=== PATIENT | male | born 1970 | race Caucasian/White ===

== ENCOUNTER 2020-09-12 12:41 | Day surgery (SDC) | payer OTHER, SELFPAY ==
[2020-09-12 12:58] VITALS: BMI 23.6
--- NOTE | 2020-09-12 14:21 | HO.ANESPROP2 ---
HPI - Anesthesia Eval Consult details Narrative: Screening Colonoscopy [facility] Social History Social History Smoking Status: Current every day smoker Packs Per Day: 1 Cigarettes Per Day: 20.0 Use of substances other than those prescribed or required for medical reasons: No Advance Directives: No Advance Directives Information Provided: No Meds Allergies Allergy/AdvReac Type Severity Reaction Status Date / Time No Known Allergies Allergy Verified 09/12/20 13:03 [No Known Allergies*] Exam Exam Date and Time: September 12, 2020 1421 Height,Weight and Vital Signs: Height 5 ft 6 in Weight 66.224 kg Airway Mallampati Class: II TM Dist: >3cm Neck ROM: Full Loose/Missing/Broken Teeth: No Heart: [id number] Lungs: cta b/l Assessment and Plan Assessment Anesthesia Assessment: Anesthesia Plan Discussed and Chart Reviewed Final Anesthetic Review NPO: Yes ASA Class: II and IV Final Preanesthetic Review: No Changes in Pt Med Stat, Meds/Allgs Chart Reviewed, Consent Obtained/Reviewed and Anes Risks/Benef Reviewed Patient Risk: Low Procedure Risk: Low Assessment/Block/Sedation in SS: Assess/Block/Sedation-SS Anesthetic Plan Anesthetic Plan: MAC: Disposition: Standard PACU
--- NOTE | 2020-09-12 14:42 | MHC.SHP ---
Pre-Procedural Eval Section B Chief Complaint: screening Relevant Family History (Specify if Yes): No Relevant Social History: Tobacco Use Present Medications: None Medical History: No relevant PMH History of Previous Operations: No relevant previous surgery Allergies: Allergies Allergy/AdvReac Type Severity Reaction Status Date / Time No Known Allergies Allergy Verified 09/12/20 13:03 [No Known Allergies*] Review of Systems Sugical H&P ROS: Negative: Constitution, Cardiovascular, Respiratory, Neurological, Psychiatric, Hem-Onc, Allergic/Immunologic, Gastrointestinal, Genitourinary, Musculoskeletal, Integumentary, Endocrine and Eyes/Ears/Nose/Throat Exam Surgical H&P Exam: Normal: HEENT, Normal: Heart, Normal: Lungs, Normal: Extremities, Normal: Abdomen, Normal: Skin and Normal: Neurological Plan Diagnosis/Plan: Unchanged Patient has been examined and remains a candidate for the planned procedure
--- NOTE | 2020-09-12 15:10 | P.OP_ITS ---
Operative Note Operative Note Date of Service: 09/12/20 Narrative: Operative Information Procedure Description: Colonoscopy COLONOSCOPY Instrument: Olympus variable stiffness pediatric scope 190L Colonoscopy Monitoring: Vital signs and clinical assessment, continuous EKG monitoring, Pulse oximetry, Carbon Dioxide monitoring and blood pressure monitoring were done throughout the procedure. Colon withdrawal time was 11 minutes. Procedure: The patient was placed in the left lateral decubitis position and pre-procedure medications were administered. After a digital rectal examination of the ano-rectum, the video colonoscope was inserted into the rectum and advanced through the colon to the cecum/TI. The colonoscope was slowly withdrawn in a retrograde panoramic fashion and the colon mucosa was carefully examined including a retroflexed view of the rectum. Findings and interventions are described below. Procedure Difficulty: easy Findings: Terminal Ileum-normal Cecum:normal Ascending Colon: normal Transverse Colon -normal Descending Colon:normal, 8-9 mm sessile polyp removed with cold snare Sigmoid Colon: normal apart from an isolated area of erythema and swelling over one fold, this was biopsied, noticed at about 22 cm from anal verge Rectum: Retroflexion with small to moderate internal hemorrhoids, grade I Anorectum - normal Colon preparation: [place] Bowel Preparation Scale Right colon; 1 Transverse colon: 2 Left colon; 1 (0 = Unprepared colon segment with mucosa not seen due to solid stool that cannot be cleared. 1 = Portion of mucosa of the colon segment seen, but other areas of the colon segment not well seen due to staining, residual stool and/or opaque liquid. 2 = Minor amount of residual staining, small fragments of stool and/or opaque liquid, but mucosa of colon segment seen well. 3 = Entire mucosa of colon segment seen well with no residual staining, small fragments of stool or opaque liquid) Impression and Post Procedure Diagnosis: internal hemorrhoids inflammed fold, possible related to prep polyp Plan: High fiber diet leaflet Avoid straining at stool, epsom salts and sitz bath, anusol supps or cream Repeat Colonoscopy in 1-2 years due to prep or earlier if clinically indicated. If path reveal any adenoma in inflammed fold then may need sigmoidoscopy for removal and assessment earlier Above findings were reviewed with the patient and relevant handouts were provided if indicated.
--- NOTE | 2020-09-12 15:10 | PM.OP ---
Brief Operative Note Date of Service: 09/12/20 Pre-op diagnosis: colon screen Post-op diagnosis: same Procedure: see op note Surgeon: Francisca Case MD Anesthesia: MAC Estimated blood loss (mL): 0 Condition: stable Disposition: PACU
[2020-09-12 15:13] VITALS: BP 96/57; PULSE 67; RESP 12; TEMP 36.2; O2SAT 97
[2020-09-12 15:28] VITALS: BP 120/69; PULSE 60; RESP 16; O2SAT 98
[2020-09-12 15:39] VITALS: BP 118/74; PULSE 60; RESP 16; O2SAT 98
--- NOTE | 2020-09-13 06:06 | HO.POSTANES ---
Post Anesthesia Evaluation Post Anesthesia Evaluation Vital Signs: patient dischaged 09/12/20 at 4:15 pm. discharge was sugned in papwr and convertes to EHR at this miment. Anesthesia: Monitored Mental Status: Awake Pain Control: Satisfactory Nausea/Vomiting: None Hydration: Adequate Anesthesia-Related Issues: No Anes. Related Issues
== END 2020-09-12 15:49 | disposition home or self-care (01) ==
PROVIDERS: PCP Internal Medicine; Visit Provider Internal Medicine Gastroenterology
PROC: 0DJD8ZZ Inspection of Lower Intestinal Tract, Via Natural or Artificial Opening Endoscopic (ICD-10-PCS; CPT 45378; principal; 2020-09-12 15:10)
DX: Z12.11 Encounter for screening for malignant neoplasm of colon (principal); K63.5 Polyp of colon; K64.0 First degree hemorrhoids
CPT/HCPCS: 45385; 45380; 88305

== ENCOUNTER → 2020-10-19 09:34 | Outpatient (BNVA) | payer OTHER, SELFPAY | PROVIDERS: PCP Internal Medicine; Visit Provider Physician Assistant | DX: Z76.89 Persons encountering health services in other specified circumstances (principal) ==

== ENCOUNTER 2021-08-04 08:49 | Outpatient (REF) | payer OTHER, SELFPAY ==
[2021-08-04 08:58] LABS: MANUAL DIFF FLAG NO
[2021-08-04 09:13] LABS: Basophils Percent Auto 0.5 % (0-2); Eosinophils Absolute Auto 0.1 X10*3/uL (0.0-0.4); Eosinophils Percent Auto 1.1 % (0-4); Hematocrit 48.7 % (42-52); Hemoglobin 16.8 g/dl (14.0-18.0); Imm Gran Abs Auto 0.03 X10*3/uL (0.00-0.03); Imm Gran Pct Auto 0.3 % (0.0-0.4); Lymphocytes Absolute Auto 2.6 X10*3/uL (1.2-4.9); Lymphocytes Percent Auto 29.7 % (20-40); Mean Corpuscular HGB Conc 34.5 g/dl (31.0-36.0); Mean Corpuscular Hemoglobin 32.2 pg (27.0-33.0); Mean Corpuscular Volume 93.3 fL (80-98); Mean Platelet Volume 10.9 fL (9.4-12.4); Monocytes Absolute Auto 0.6 X10*3/uL (0.1-1.2); Neutrophils Absolute Auto 5.4 X10*3/uL (2.0-8.3); Neutrophils Percent Auto 61.4 % (45-73); Platelet Count 184 X10*3/uL (160-400); Red Blood Count 5.22 X10*6/uL (4.60-5.80); Red Cell Distribution Width 12.5 % (11.0-16.0); White Blood Count 8.8 X10*3/uL (4.8-10.8)
[2021-08-04 09:54] LABS: Alanine Aminotransferase 26 U/L (0-40); Albumin Level 4.3 g/dL (3.5-5.0); Alkaline Phosphatase 72 U/L (39-117); Anion Gap 10 (12-20); Aspartate Amino Transferase 20 U/L (5-37); Blood Urea Nitrogen 9 mg/dL (9-16); Calcium 8.9 mg/dL (8.4-10.2); Carbon Dioxide 26 mmol/L (22-29); Chloride 105 mmol/L (96-108); Cholesterol 149 mg/dL; Estimated Glomerular Filt Rate 59; Glucose Fasting 104 mg/dL (60-99); HDL Cholesterol 24 mg/dL; LDL Cholesterol Calculated 86 mg/dl; Potassium 4.1 mmol/L (3.3-5.1); Sodium 137 mmol/L (135-145); Total Protein 7.4 g/dL (6.5-8.0); Triglycerides 199 mg/dL
[2021-08-04 10:13] LABS: Thyroid Stimulating Hormone 0.99 uIU/mL (0.32-4.0)
== END 2021-08-04 08:50 | disposition home or self-care (01) ==
LOC: HO.LAB 08:49
PROVIDERS: PCP Internal Medicine; Visit Provider Internal Medicine
DX: E66.3 Overweight (principal); E78.5 Hyperlipidemia, unspecified; D64.9 Anemia, unspecified
CPT/HCPCS: 36415; 80053; 80061; 84443; 85025

== ENCOUNTER → 2021-11-26 10:25 | Outpatient (BNVA) | payer SELFPAY | PROVIDERS: PCP Internal Medicine; Visit Provider Physician Assistant Medical | DX: Z02.79 Encounter for issue of other medical certificate (principal) ==

== ENCOUNTER 2022-09-19 08:37 | Outpatient (REF) | payer OTHER, SELFPAY ==
[2022-09-19 09:58] LABS: Alanine Aminotransferase 40 U/L (0-40); Albumin Level 4.3 g/dL (3.5-5.0); Alkaline Phosphatase 60 U/L (39-117); Anion Gap 11 (12-20); Aspartate Amino Transferase 25 U/L (5-37); Bilirubin Total 1.2 mg/dL (0.0-1.0); Blood Urea Nitrogen 11 mg/dL (9-16); Calcium 9.4 mg/dL (8.4-10.2); Carbon Dioxide 27 mmol/L (22-29); Chloride 108 mmol/L (96-108); Cholesterol 171 mg/dL; Estimated Glomerular Filt Rate 58; Glucose Fasting 102 mg/dL (60-99); HDL Cholesterol 23 mg/dL; LDL Cholesterol Calculated 110 mg/dl; Potassium 4.9 mmol/L (3.3-5.1); Sodium 141 mmol/L (135-145); Total Protein 7.1 g/dL (6.5-8.0); Triglycerides 192 mg/dL
== END 2022-09-19 08:38 | disposition home or self-care (01) ==
LOC: HO.LAB 08:37
PROVIDERS: PCP Internal Medicine; Visit Provider Internal Medicine
DX: Z00.00 Encounter for general adult medical examination without abnormal findings (principal)
CPT/HCPCS: 36415; 80053; 80061

== ENCOUNTER → 2023-11-21 10:10 | Outpatient (BNVA) | payer SELFPAY | PROVIDERS: PCP Internal Medicine; Visit Provider Physician Assistant | DX: Z02.79 Encounter for issue of other medical certificate (principal) ==

== ENCOUNTER 2024-04-28 10:17 | Emergency (ER) | payer SELFPAY ==
--- NOTE | ~2024-04-28 | US_ITS ---
EXAMINATION: US VENOUS ULTRASOUND WITH DOPPLER LOWER EXTREMITY, LEFT CLINICAL INFORMATION: Calf pain. COMPARISON: None available. TECHNIQUE: Ultrasound of the deep veins is performed from the hip to the calf with compression sonography and color and pulse Doppler assessment. Spectral analysis with color-flow imaging is performed. FINDINGS: There is normal venous compression and respiratory variation and augmented flow. The visualized common femoral vein, superficial femoral vein, profunda femoral vein, popliteal vein, and the trifurcation region shows no evidence of deep venous thrombosis. Small patent compressible varix arising from the left anterior tibial vein in the proximal calf. There is no significant popliteal fossa cyst. Morphologically normal mildly enlarged left groin lymph nodes are likely reactive. The largest node measures 1.5 x 0.6 cm diameter by 3.0 cm length. US/US venous duplex LE LT IMPRESSION: No DVT demonstrated in the left lower extremity. Venous varicosity off the anterior tibial vein is patent and compressible without evidence of thrombophlebitis. Morphologically normal mildly enlarged left groin lymph nodes are likely reactive. Clinical correlation and follow-up are necessary.
[2024-04-28 10:22] VITALS: BP 115/64; PULSE 70; RESP 16; TEMP 36.3; O2SAT 97; BMI 25.1
[2024-04-28] MEDS: Fluorescein Sodium STRIP 1 STRIP EYE-RIGHT (13:54)
[2024-04-28] MEDS: Tetracaine HCl/PF 0.5% Oph Sol 4 ML DROPS 1 DROP EYE-RIGHT (13:54)
--- NOTE | 2024-04-28 14:46 | ED.GENADULT ---
HPI - General Adult General Chief complaint: General Medical Stated complaint: R eye problem , L leg numb and stiff Time Seen by Provider: 04/28/24 12:57 Source: patient, RN notes reviewed and old records reviewed Mode of arrival: ambulatory History of Present Illness ED Provider: Clara Casper PA-C [facility] narrative: 54-year-old male with no significant past medical history presenting to the ED complaining of right irritation, tearing, blurry vision and foreign body sensation x this morning s/p walking out to vehicle and feeling something go into eye. Also reports intermittent left calf pain/cramping x months worse with ambulation. Denies direct trauma to eye, wearing glasses or contacts, vision loss. Denies history of clots, recent travel, SOB or anticoagulation use. Is a cigarette smoker. Related Data Previous Rx's ?Medication ?Instructions ?Recorded erythromycin 5 mg/gram (0.5 %) eye 0.5 inch ophthalmic (eye) QID 5 04/28/24 ointment days #3.5 grams Allergies Allergy/AdvReac Type Severity Reaction Status Date / Time No Known Allergies Allergy Verified 04/28/24 10:25 [No Known Allergies*] Review of Systems Review of Systems: Constitutional: No Fever, No Chills ENT/Mouth: No Ear Pain, No Nasal Congestion, No sore throat, No Rhinorrhea, No Swallowing Difficulty Eye: + eye pain, + erythema, + tearing, + blurry vision Cardiovascular: No Chest Pain, No SOB Respiratory: No Cough Gastrointestinal: No Nausea, No Vomiting, No Diarrhea, No Constipation, No Abdominal pain Genitourinary: No Dysuria, No Urinary Frequency, No Hematuria, No Flank Pain Musculoskeletal: + joint pain, No Myalgias, No Joint Swelling Skin: No Skin Lesions, No rash Neuro: No Weakness, No Numbness, No Paresthesias Yes all other systems are reviewed and are negative Constitutional: Constitutional: Reports as per [facility] Past Medical History Attestation statement: The following information was validated with the patient. Source: old records reviewed Medical History Overweight (BMI 25.0-29.9) Hyperplastic colon polyp Surgical History No pertinent past surgical history Family History Family History Mother No problems noted. Father No problems noted. Social History Social History Housing: House Alcohol intake: never Patient Tobacco Use Status: Current everyday Tobacco user Tobacco use type: Cigarette Cigarettes Per Day: 13 e-Cigarette/Vaping Use: Never Used Second Hand Smoke Exposure: No Advance Directives: No service: No Current occupational status: unemployed Current occupational exposures/hazards: No Cognitive needs: No Hearing needs: No Vision needs: No Physical Exam ED Vital Signs: Vital Signs - 24 hr 04/28/24 10:22 Temperature 97.3 F Pulse Rate 70 Respiratory Rate 16 Blood Pressure 115/64 Pulse Oximetry 97 Oxygen Delivery Method Room Air BMI result Body Mass Index 25.1 Const General: cooperative, healthy appearing and no acute distress Orientation/consciousness: patient oriented x3 Limitations: no limitations HENMT Head: Yes normal to inspection and Yes atraumatic Ears: hearing grossly normal bilaterally General nose exam: Normal external nose present Face and sinus: Yes normal facial exam Eyes General: appearance normal, both eyes and all related structures Conjunctivae: conjunctival abnormal right conjunctival injection diffuse and pterygium Corneas: corneas abnormal on the right fluorescein used and abrasion (@9 o'clock); with no foreign body noted and without ulcerations EOM: EOMs intact bilaterally Direct Ophthalmoscopy: normal light reflex Neck Neck: Yes normal visual inspection and Yes no meningeal signs Resp Effort & Inspection: normal respiratory effort and no respiratory distress Cardio Rate: regular rate Peripheral pulses: Peripheral pulses 2+ throughout Skin Rashes: no rashes Wounds: no wounds Neuro General: patient oriented x3, tone normal and no meningeal signs Cranial nerves: Yes CN's II-XII intact bilaterally Gait exam (Neuro): Normal gait present Extrem Other: Left calf w/mild tenderness. No appreciable deformity. No erythema/crepitus or ecchymosis. Neurovascular intact distally. General: Yes normal to inspection Course Course Course Narrative: US venous duplex LE LT IMPRESSION: No DVT demonstrated in the left lower extremity. Venous varicosity off the anterior tibial vein is patent and compressible without evidence of thrombophlebitis. Morphologically normal mildly enlarged left groin lymph nodes are likely reactive. Clinical correlation and follow-up are necessary. > Results discussed with patient including worrisome signs and symptoms and strict return precautions, and when to return to the emergency department. They verbalized understanding and feel safe for discharge at this time. Medications Administered Discontinued Medications Generic Name Dose Route Start Last Admin Trade Name Gonsalo PRN Reason Stop Dose Admin Fluorescein Sodium 1 strip 04/28/24 13:18 04/28/24 13:54 Fluorescein Sodium Strip EYE-RIGHT 04/28/24 13:19 1 strip ONCE ONE Administration Tetracaine HCl 1 drop 04/28/24 13:18 04/28/24 13:54 Tetracaine Hcl/Pf 0.5% Oph Hilda 4 Ml Drops EYE-RIGHT 04/28/24 13:19 1 drop ONCE ONE Administration Medical Decision Making Medical Decision Making MDM Narrative: 54-year-old male with no significant past medical history presenting to the ED complaining of right irritation, tearing, blurry vision and foreign body sensation x this morning s/p walking out to vehicle and feeling something go into eye. Also reports intermittent left calf pain/cramping x months worse with ambulation. On exam vital signs stable, NAD, nontoxic appearing, right eye with diffuse injection, tearing, and appreciable corneal abrasion. No ulceration. No evidence of globe rupture, preseptal or septal cellulitis. Left calf with appreciable tenderness. No swelling or pitting edema. Neurovascularly intact distally. Concern for DVT vs MSK pain/strain. Lower suspicion for arterial compromise, fracture, celulitis or PE Plan: Ultrasound, visual acuity, tetracaine/fluorescein staining Please refer to course for remaining clinical decision making, interpretation of labs/imaging results, and discussions with consultants and/or family members. Differential Diagnosis Differential Diagnoses: The differential diagnosis associated with the presentation includes As above Independent Interpretation I performed an independent interpretation of an: Ultrasound Radiology Impression Discussion of test interpretation with radiology: I have reviewed the radiologist's reading. External Record Review External record reviewed: Inpatient record, Office record, Outpatient record, Prior outpatient labs, Prior outpatient radiology, Primary care record and Outside ED record Tests considered The following testing was considered but not selected: As above Prescription Management I considered prescription management with: Pain Medication Chronic Conditions Patient?s care impacted by: Other Discharge Plan Discharge Clinical Impression: Corneal abrasion, Lymph node enlargement Patient Disposition: Home, Self-Care Instructions: Corneal Abrasion (DC), Lymphadenopathy (ED) Additional Instructions: You have a scratch on your eye, erythromycin is a topical antibiotic ointment please apply as prescribed You need to follow-up with ophthalmology call to make an appointment Your ultrasound does not show a blood clot, does show a mildly enlarged left groin lymph node, please follow-up with your primary care doctor in regards to this If pain persists or worsens/becomes unbearable, you develop worsening vision change, loss, tearing return to the ED Prescriptions: New erythromycin 5 mg/gram (0.5 %) ointment 0.5 inch ophthalmic (eye) QID 5 Days Qty: 3.5 0RF Referrals: [facility] [place] [facility] Group] [facility] [place] [facility] [Provider Group] Tamara Pastrana MD [Primary Care Provider] - Print Language: Greek
[2024-04-28 16:21] VITALS: BP 136/84; PULSE 64; RESP 16; TEMP 37; O2SAT 98
[2024-04-28 16:22] VITALS: BP 136/84; PULSE 64; RESP 16; TEMP 37; O2SAT 99
== END 2024-04-28 16:23 | disposition home or self-care (01) ==
PROVIDERS: Emergency Provider Emergency Medicine; PCP Internal Medicine
DX: R59.9 Enlarged lymph nodes, unspecified (principal); M79.662 Pain in left lower leg; S05.01XA Injury of conjunctiva and corneal abrasion without foreign body, right eye, initial encounter; X58.XXXA Exposure to other specified factors, initial encounter; Y93.01 Activity, walking, marching and hiking; Y92.008 Other place in unspecified non-institutional (private) residence as the place of occurrence of the external cause; Y99.9 Unspecified external cause status; F17.210 Nicotine dependence, cigarettes, uncomplicated
CPT/HCPCS: 93971; 99283; 99284